=== PATIENT | male | born 1985 | race African-American/Black ===

== ENCOUNTER 2017-05-13 17:10 | Emergency (ER) | payer BC ==
[~2017-05-13] VITALS: Ht 167.6 cm; Wt 61.2 kg
[2017-05-13 17:24] VITALS: BP 155/78
[2017-05-13] MEDS ORDERED: METH-37 PO (18:25)
[2017-05-13] MEDS ORDERED: PROAIR RESPICL90 MCG IH (18:25)
[2017-05-13] MEDS ORDERED: TRAM-48 PO (18:25)
[2017-05-13] MEDS ORDERED: METH4TAB2 PO (18:25)
[2017-05-13] MEDS ORDERED: DICL100G18 TP (18:25)
[2017-05-13] MEDS ORDERED: BENZ100C PO (18:26)
--- NOTE | 2017-05-13 18:27 | PHYS DOC ---
Past Medical History Past Medical History: No Pertinent History Past Surgical History: Other Additional Past Surgical Histo: eye Alcohol Use: Occasionally Drug Use: None Adult General Chief Complaint Chief Complaint: GENERALIZED BODY ACHES [facility] HPI Patient is a 31 year old male with no significant medical history who presents today with multiple complaints. Patient is complaining a productive cough for 3 days. Patient is also complaining of mild intermittent left scapular pain left mid and upper back pain and left lateral neck pain intermittently for one week. Patient states this pain typically occurs before he goes to bed and when he wakes up. He states he can take Advil and the pain goes away but when he wakes up from his sleep he has pain in the morning. He works for [employer] and does considerable lifting by has not had an injury. Review of Systems Review of Systems Constitutional: Denies fever or chills [] Eyes: Denies change in visual acuity, redness, or eye pain [] HENT: Denies nasal congestion or sore throat [] Respiratory: cough denies shortness of breath [] Cardiovascular: No additional information not addressed in HPI [] GI: Denies abdominal pain, nausea, vomiting, bloody stools or diarrhea [] : Denies dysuria or hematuria [] Musculoskeletal:left scapular pain left mid and upper back pain and left lateral neck pain Integument: Denies rash or skin lesions [] Neurologic: Denies headache, focal weakness or sensory changes [] All other systems were reviewed and found to be within normal limits, except as documented in this note. Allergies Allergies Allergies Coded Allergies Type Severity Reaction Last Updated Verified No Known Drug Allergies 06/21/15 No Physical Exam Physical Exam Constitutional: Well developed, well nourished, no acute distress, non-toxic appearance. [] HENT: Normocephalic, atraumatic, bilateral external ears normal, oropharynx moist, no oral exudates, nose normal. [] Eyes: PERRLA, EOMI, conjunctiva normal, no discharge. [] Neck: Normal range of motion, no tenderness, supple, no stridor. [] Cardiovascular:Heart rate regular rhythm, no murmur [] Lungs & Thorax: Bilateral breath sounds clear to auscultation [] Abdomen: Bowel sounds normal, soft, no tenderness, no masses, no pulsatile masses. [] Skin: Warm, dry, no erythema, no rash. [] Back: No tenderness, no CVA tenderness. [] Extremities: No tenderness, no cyanosis, no clubbing, ROM intact, no edema. [] Neurologic: Alert and oriented X 3, normal motor function, normal sensory function, no focal deficits noted. [] Psychologic: Affect normal, judgement normal, mood normal. [] Current Patient Data Vital Signs Vital Signs Date Time Temp Pulse Resp B/P (MAP) Pulse Ox O2 Delivery O2 Flow Rate FiO2 05/13/17 17:24 98.3 93 18 99 Room Air 98.3 EKG EKG [] Radiology/Procedures Radiology/Procedures [] Course & Med Decision Making Course & Med Decision Making Pertinent Labs and Imaging studies reviewed. (See chart for details) Patient is in the ED with multiple complaints including neck pain, scapular pain , radiating to the shoulder, and a cough. Patient is in no distress. Pain is very musculoskeletal, he works for [employer] and does lifting, no injury. I talked to patient as well as mother on the phone. Patient will be discharged with albuterol inhaler for his cough, Medrol Dosepak, diclofenac cream,and Tessalon Perles. Dragon Disclaimer Dragon Disclaimer This electronic medical record was generated, in whole or in part, using a voice recognition dictation system. Departure Departure Impression: Primary Impression: Cough Additional Impression: Musculoskeletal pain Disposition: 01 HOME, SELF-CARE Condition: STABLE Referrals: NO PCP (PCP) follow up with your doctor in one week Patient Instructions: Cough, Adult, [id number], Musculoskeletal Pain Additional Instructions: You were seen with musculoskeletal and a cough Please take the medications provided as ordered Follow up with your doctor in one week Do not drive or operate machinery or Robaxin and or ultram Scripts Benzonatate (TESSALON PERLE) 100 Mg Capsule 1 CAP PO TID, #30 CAP Prov: MUTUNGA,TEA NEWS WRITER 05/13/17 Methocarbamol (ROBAXIN) 500 Mg Tablet 1 TAB PO TID, #30 TAB Prov: MUTUNGATEA NEWS WRITER 05/13/17 Methylprednisolone (MEDROL) 4 Mg Tab.ds.pk 1 PKG PO UD, #1 PKG Prov: MUTUNGA,TEA NEWS WRITER 05/13/17 Tramadol Hcl (ULTRAM) 50 Mg Tablet 1 TAB PO Q6HRS, #30 TAB Prov: MUTUNGA,TEA NEWS WRITER 05/13/17 Albuterol Sulfate (Proair Respiclick) 90 Mcg Aer.pow.ba 1 PUFF IH PRN Q6HRS Y for SHORTNESS OF BREATH, #1 INHALER Prov: TEA YA APRN 05/13/17 Diclofenac Sodium (VOLTAREN) 100 Gm Gel..gram. 1 GM TP QID, #100 GM 2 Refills Prov: TEA YA APRN 05/13/17 Problem Qualifiers TEA YA APRN May 13, 2017 18:27
== END 2017-05-13 18:33 | disposition home or self-care (01) ==
LOC: ER 17:10
DX: R05 Cough (principal); M54.2 Cervicalgia; R51 Headache; M54.6 Pain in thoracic spine
CPT/HCPCS: 99283

== ENCOUNTER 2021-08-09 14:31 | Emergency (ER) | payer BC, OTHER ==
[~2021-08-09] VITALS: Ht 167.6 cm; Wt 61.8 kg
[~2021-08-09 14:31] MED LIST: BENZ100C PO; DICL100G54 TP; METH-37 PO; METH4TAB2 PO; PROAIR RESPICL90 MCG IH; TRAM-48 PO
[2021-08-09] MEDS ORDERED: IV NORMAL SALINE 1000ML BAG 1,000 ML IV ONE (15:00)
[2021-08-09 15:17] LABS: BASO % 1 % (0-3); EOS % 1 % (0-3); HEMOGLOBIN 13.2 g/dL (13.0-17.5); LYMPH % 18 % (24-48); MEAN CORPUSCULAR HEMOGLOBIN 24 pg (25-35); MEAN CORPUSCULAR HGB CONC 32 g/dL (31-37); MEAN CORPUSCULAR VOLUME 76 fL (79-100); MONO # 0.7 x10^3/uL (0.0-1.1); MONO % 13 % (0-9); NEUT # 3.7 x10^3/uL (1.8-7.7); NEUT % 67 % (31-73); PLATELET COUNT 134 x10^3/uL (140-400); RED BLOOD COUNT 5.52 x10^6/uL (4.30-5.70); RED CELL DISTRIBUTION WIDTH 17.2 % (11.5-14.5); WHITE BLOOD COUNT 5.4 x10^3/uL (4.0-11.0)
--- NOTE | 2021-08-09 15:30 | RAD ---
EXAM: Chest, single view. HISTORY: Dizziness. Syncope. COMPARISON: None. FINDINGS: A frontal view of the chest obtained. There is no infiltrate, pleural effusion or pneumotho rax. The heart is normal in size. IMPRESSION: No acute pulmonary finding. Electronically signed by: Nancy Abreu MD (08/09/2021 3:27 PM) [id number]
--- NOTE | 2021-08-09 15:34 | RAD ---
INDICATION: Reason: Dizziness, syncopal episode / Spl. Instructions: / History: COMPARISON: March 29, 2018 TECHNIQUE: Axial CT images obtained through the head without intravenous contrast. One or more of the following individualized dose reduction techniques were utilized for this examinat ion: 1. Automated exposure control; 2. Adjustment of the mA and/or kV according to patient size; 3 . Use of iterative reconstruction technique. FINDINGS: No intracranial hemorrhage. No significant midline shift. Ventricles and sulci are unremarkable. No acute osseous abnormality. IMPRESSION: * No acute intracranial hemorrhage. Electronically signed by: Ken Quiles MD (08/09/2021 3:32 PM) [id number]
[2021-08-09 15:43] LABS: BILIRUBIN,URINE NEGATIVE (NEG); CLARITY,URINE CLEAR; COLOR,URINE YELLOW; NITRITE,URINE NEGATIVE (NEG); PROTEIN,URINE NEGATIVE (NEG-TRACE)
[2021-08-09 15:50] LABS: CALCIUM 8.2 mg/dL (8.5-10.1); CREATININE 0.9 mg/dL (0.7-1.3); GFR 115.5; POTASSIUM 4.6 mmol/L (3.5-5.1)
[2021-08-09 15:53] LABS: BACTERIA,URINE 0 /HPF (0-FEW); RBC,URINE 0 /HPF (0-2); WBC,URINE RARE /HPF (0-4)
[2021-08-09 15:56] LABS: ALBUMIN 3.4 g/dL (3.4-5.0); ALBUMIN/GLOBULIN RATIO 0.7 (1.0-1.7); TOTAL BILIRUBIN 1.3 mg/dL (0.2-1.0); TOTAL PROTEIN 8.2 g/dL (6.4-8.2)
[2021-08-09 16:23] LABS: BARBITURATES NEG (NEG); BENZODIAZEPINES NEG (NEG); CANNABINOIDS NEG (NEG); COCAINE NEG (NEG); METHADONE NEG (NEG); OPIATES NEG (NEG); PHENCYCLIDINE NEG (NEG)
[2021-08-09 16:42] LABS: AMPHETAMINE/METHAMPHETAMINE NEG (NEG)
--- NOTE | 2021-08-09 17:44 | PHYS DOC ---
Past Medical History Past Medical History: No Pertinent History Past Surgical History: Other Additional Past Surgical Histo: eye Smoking Status: Never Smoker Alcohol Use: Occasionally Drug Use: None General Adult EDM: Chief Complaint: DIZZY/LIGHT HEADED HPI: HPI: Patient is a 36-year-old male presents to the emergency department complaining of a dizzy spell with syncopal episode this past Monday while at work. 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 Patient denied hitting his head, denied injury to any part of his body, is unsure whether he fell or not, woke up in the seated position. Patient reports today at approximately 11 AM he had a return of his dizzy spell without syncopal episode. Patient reports the room started spinning while he was watching TV and lasted for approximately 1 minute then resolved. Patient reports as he was thinking about getting ready to go to work he started to get worried and wanted to come in for an examination. Patient is asking for work excuse for tonight. Patient denies history of cigarette smoking, reports he drinks on occasion, denies illicit drug use or history of IV drug use. Patient denies chest pains, chest palpitations, diaphoretic episodes, shortness of breath, chest or nasal congestion. Patient denies other physical complaints or physical concerns. Patient denies dizziness aches or pains or other symptoms at this current time. Review of Systems: Review of Systems: 14 body systems of review of systems have been reviewed. See HPI for pertinent positives and negative responses, otherwise all other systems are negative, nonpertinent or noncontributory. Constitutional: Negative except as outlined in HPI above. Skin: Negative except as outlined in HPI above. Eyes: Negative except as outlined in HPI above. HENT: Negative except as outlined in HPI above. Respiratory: Negative except as outlined in HPI above. Cardiovascular: Negative except as outlined in HPI above. GI: Negative except as outlined in HPI above. : Negative except as outlined in HPI above. Musculoskeletal: Negative except as outlined in HPI above. Integument: Negative except as outlined in HPI above. Neurologic: Negative except as outlined in HPI above. Endocrine: Negative except as outlined in HPI above. Lymphatic: Negative except as outlined in HPI above. Psychiatric: Negative except as outlined in HPI above. Heart Score: C/O Chest Pain: No Risk Factors: Risk Factors: DM, Current or recent (<one month) smoker, HTN, HLP, family history of CAD, obesity. Risk Scores: Score 0 - 3: 2.5% MACE over next 6 weeks - Discharge Home Score 4 - 6: 20.3% MACE over next 6 weeks - Admit for Clinical Observation Score 7 - 10: 72.7% MACE over next 6 weeks - Early Invasive Strategies Current Medications: Current Medications Medications (Trade) Dose Ordered Sig/Priyank Start Time Stop Time Status Last Admin Dose Admin Sodium Chloride 1,000 ml @ 1,000 mls/hr 1X ONCE 08/09/21 15:00 08/09/21 15:59 DC 08/09/21 15:00 1,000 MLS/HR Allergies: Allergies: Allergies Coded Allergies Type Severity Reaction Last Updated Verified No Known Drug Allergies 06/21/15 No Physical Exam: PE: Constitutional: Well developed, well nourished, no acute distress, non-toxic appearance. 36-year-old male in no apparent distress. HENT: Normocephalic, atraumatic. Oropharynx moist, pink, no deep tissue infectious process appreciated, no lymphadenopathy of the head or neck appreciated. Eyes: Conjunctiva normal, no discharge. Neck: Normal range of motion, no stridor. No C-spine tenderness, no nuchal rigidity. Cardiovascular: No cyanosis appreciated, distal cap refill less than 2 seconds. Lungs & Thorax: Patient is in no respiratory distress, no audible adventitious lung sounds appreciated. Abdomen: Nontender, no abnormalities noted. Abdomen flat, no masses or megaly appreciated, no skin discoloration appreciated, no surgical scars. Bowel sounds positive all four quadrants. Skin: Warm, dry, no erythema, no rash. Back: No tenderness, no deformities. Extremities: No tenderness, no cyanosis, no clubbing, ROM intact, no edema. Neurologic: Alert and oriented X 3, normal motor function, normal sensory function, no focal deficits noted. Psychologic: Affect normal, judgement normal, mood normal. Current Patient Data: Labs: Laboratory Tests Test 08/09/21 15:04 08/09/21 15:34 White Blood Count 5.4 x10^3/uL (4.0-11.0) Red Blood Count 5.52 x10^6/uL (4.30-5.70) Hemoglobin 13.2 g/dL (13.0-17.5) Hematocrit 42.0 % (39.0-53.0) Mean Corpuscular Volume 76 fL (79-100) L Mean Corpuscular Hemoglobin 24 pg (25-35) L Mean Corpuscular Hemoglobin Concent 32 g/dL (31-37) Red Cell Distribution Width 17.2 % (11.5-14.5) H Platelet Count 134 x10^3/uL (140-400) L Neutrophils (%) (Auto) 67 % (31-73) Lymphocytes (%) (Auto) 18 % (24-48) L Monocytes (%) (Auto) 13 % (0-9) H Eosinophils (%) (Auto) 1 % (0-3) Basophils (%) (Auto) 1 % (0-3) Neutrophils # (Auto) 3.7 x10^3/uL (1.8-7.7) Lymphocytes # (Auto) 1.0 x10^3/uL (1.0-4.8) Monocytes # (Auto) 0.7 x10^3/uL (0.0-1.1) Eosinophils # (Auto) 0.0 x10^3/uL (0.0-0.7) Basophils # (Auto) 0.0 x10^3/uL (0.0-0.2) Platelet Estimate Pending Sodium Level 136 mmol/L (136-145) Potassium Level 4.6 mmol/L (3.5-5.1) Chloride Level 102 mmol/L (98-107) Carbon Dioxide Level 25 mmol/L (21-32) Anion Gap 9 (6-14) Blood Urea Nitrogen 9 mg/dL (8-26) Creatinine 0.9 mg/dL (0.7-1.3) Estimated GFR (Cockcroft-Gault) 115.5 BUN/Creatinine Ratio 10 (6-20) Glucose Level 94 mg/dL (70-99) Calcium Level 8.2 mg/dL (8.5-10.1) L Total Bilirubin 1.3 mg/dL (0.2-1.0) H Aspartate Amino Transferase (AST) 251 U/L (15-37) H Alanine Aminotransferase (ALT) 211 U/L (16-63) H Alkaline Phosphatase 248 U/L (46-116) H Troponin I High Sensitivity 4 ng/L (4-75) BF-Jed-H-Type Natriuretic Peptide 51 pg/mL (0-124) Total Protein 8.2 g/dL (6.4-8.2) Albumin 3.4 g/dL (3.4-5.0) Albumin/Globulin Ratio 0.7 (1.0-1.7) L Urine Color Yellow Urine Clarity Clear Urine pH 8.0 (<5.0-8.0) Urine Specific [place] 1.010 (1.000-1.030) Urine Protein Negative mg/dL (NEG-TRACE) Urine Glucose (UA) Negative mg/dL (NEG) Urine Ketones (Stick) Negative mg/dL (NEG) Urine Blood Negative (NEG) Urine Nitrite Negative (NEG) Urine Bilirubin Negative (NEG) Urine Urobilinogen Dipstick 1.0 mg/dL (0.2 mg/dL) Urine Leukocyte Esterase Negative (NEG) Urine RBC 0 /HPF (0-2) Urine WBC Rare /HPF (0-4) Urine Bacteria 0 /HPF (0-FEW) Urine Opiates Screen Neg (NEG) Urine Methadone Screen Neg (NEG) Urine Barbiturates Neg (NEG) Urine Phencyclidine Screen Neg (NEG) Urine Amphetamine/Methamphetamine Neg (NEG) Urine Benzodiazepines Screen Neg (NEG) Urine Cocaine Screen Neg (NEG) Urine Cannabinoids Screen Neg (NEG) Urine Ethyl Alcohol Neg (NEG) Laboratory Tests 08/09/21 15:04 Laboratory Tests 08/09/21 15:04 Vital Signs: Vital Signs Date Time Temp Pulse Resp B/P (MAP) Pulse Ox O2 Delivery O2 Flow Rate FiO2 08/09/21 14:35 98.7 76 16 169/95 (119) 98 Room Air 98.7 EKG: EKG: EKG performed at 1503 by ED nursing staff shows a normal sinus rhythm without other ectopy heart rate 75 bpm, parable 0.160, QTc interval 0.420, no acute STEMI, no ACS, no acute ischemia appreciated, EKG interpreted by ED attending physician Dr. Patel. Radiology/Procedures: Radiology/Procedures: REASON: Dizziness, syncopal episode PROCEDURE: CT HEAD WO CONTRAST INDICATION: Reason: Dizziness, syncopal episode / Spl. Instructions: / History: COMPARISON: March 29, 2018 TECHNIQUE: Axial CT images obtained through the head without intravenous contrast. One or more of the following individualized dose reduction techniques were utilized for this examination: 1. Automated exposure control; 2. Adjustment of the mA and/or kV according to patient size; 3. Use of iterative reconstruction technique. FINDINGS: No intracranial hemorrhage. No significant midline shift. Ventricles and sulci are unremarkable. No acute osseous abnormality. IMPRESSION: * No acute intracranial hemorrhage. Electronically signed by: Ken Quiles MD (08/09/2021 3:32 PM) [id number] REASON: Dizziness, syncopal episode,ALSO CT PROCEDURE: CHEST AP ONLY EXAM: Chest, single view. HISTORY: Dizziness. Syncope. COMPARISON: None. FINDINGS: A frontal view of the chest obtained. There is no infiltrate, pleural effusion or pneumothorax. The heart is normal in size. IMPRESSION: No acute pulmonary finding. Electronically signed by: Nancy Abreu MD (08/09/2021 3:27 PM) [id number] Course & Med Decision Making: Course & Med Decision Making Pertinent Labs and Imaging studies reviewed. (See chart for details) 36-year-old male, vital signs reviewed, presents emergency department concerning dizziness, also had unwitnessed syncopal episode this past Monday. Physical examination is unremarkable, will order orthostatic vital signs, saline lock, 1 L normal saline, CBC, CMP, high-sensitivity troponin I, NT proBNP, CT head without contrast, chest x-ray, EKG, urinalysis assay, urine drug screen. Patient CT head unremarkable, chest x-ray unremarkable, EKG unremarkable, cardiac specific labs unremarkable, CBC unremarkable, patient's liver enzymes were notably elevated, will order hepatitis panel. Upon reexamination of the patient and review of emergency department work-up findings, patient does not reveal he is a daily drinker, denies abdominal pain, denies nausea, reports his last drink was this morning at approximately 8 AM when he got off work. Discussed with patient elevated liver enzymes, strict follow-up with primary care this week, patient reports he does not have a primary care physician, discussed with patient will provide information for area outpatient physicians to establish care with, reviewed return to ER precautions and concerns, patient gave verbal understanding of and is amenable to ED discharge planning. Discussed with the patient all findings and diagnostic testing as well as the need to follow-up with their primary care provider for further evaluation and treatment or return to the ED if any new or worsening symptoms. Strict return precautions were also discussed at length, the patient voiced understanding and agreement with the discharge planning. The patient was nontoxic in appearance, in no apparent distress, and hemodynamically stable at the time of disposition. Dragon Disclaimer: Dragon Disclaimer: This electronic medical record was generated, in whole or in part, using a voice recognition dictation system. Departure Departure Impression: Primary Impression: Spell of dizziness Additional Impression: Elevated liver enzymes Disposition: HOME / SELF CARE / HOMELESS Condition: GOOD Referrals: NO PCP (PCP) Patient Instructions: Dizziness Additional Instructions: You were seen today in the emergency department for dizzy spells and your passing out spell you had this past Monday. Your head CT and chest x-ray did not show any concerning findings. EKG and cardiac enzymes did not show any joselito rning findings. Your lab work was normal except for your liver enzymes. As we discussed they are elevated. I have sent a hepatitis panel to the lab to run, this should take a few days to process. During this time please establish care with a primary care provider. You had indicated you did not have a doctor to see, a pamphlet of area healthcare providers has been provided for you to review and choose a doctor to see this week. I have provided your work excuse you have asked for for today. Return to the emergency department for worsening symptoms or other concerns. Thank you for visiting our Emergency Department. It was a pleasure taking care of you today in the emergency department and we appreciate you trusting us with your care. If any additional problems come up don't hesitate to return to visit us. Please follow up with your primary care provider so they can plan additional care if needed and know about the problem that you had. If symptoms worsen come back to the Emergency Department. Any concerning symptoms that start such as chest pain, shortness of air, weakness or numbness on one side of the body, running high fevers or any other concerning symptoms return to the ER. EMERGENCY DEPARTMENT GENERAL DISCHARGE INSTRUCTIONS Thank you for coming to [facility] Emergency Department (ED) today and trusting us with you care. We trust that you had a positive experience in our Emergency Department. If you wish to speak to the department management, you may call the Director at [phone]. YOUR FOLLOW UP INSTRUCTIONS ARE FOLLOWS: 1. Do you have a private Doctor? If you do not have a private doctor, please ask for a resource list of physicians or clinics that may be able to assist you with follow up care. 2. The Emergency Physicain has interpreted your x-rays. The X-Ray specialist will also review them. If there is a change in the findings, you will be notified in 48 hours when at all possible. 3. A lab test or culture has been done, your results will be reviewed and you will be notified if you need a change in treatment. ADDITIONAL INSTRUCTIONS AND INFORMATION: 1. Your care today has been supervised by a physician who is specially trained in emergency care. Many problems require more than one evaluation for a complete diagnosis and treatment. We recommend that you schedule your follow up appointment as recommended to ensure complete treatment of you illness or injury. If you are unable to obtain follow up care and continue to have a problem, or if your condition worsens, we recommend that you return to the ED. 2. We are not able to safely determine your condition over the phone nor are we able to give sound medical advice over the phone. For these safety reasons, if you call for medical advice we will ask you to come to the ED for further evaluation. 3. If you have any questions regarding these discharge instructions please call the ED at [phone]. SAFETY INFORMATION: In the interest of safety, wellness, and injury prevention; we encourage you to wear your sealbelt, if you smoke; quite smoking, and we encourage family to use a protective helmet for bicycling and other sporting events that present an increased risk for head injury. IF YOUR SYMPTOMS WORSEN OR NEW SYMPTOMS DEVELOP, OR YOU HAVE CONCERNS ABOUT YOUR CONDITION; OR IF YOUR CONDITION WORSENS WHILE YOU ARE WAITING FOR YOUR FOLLOW UP APPOINTMENT; EITHER CONTACT YOUR PRIMARY CARE DOCTOR, THE PHYSICIAN WHOSE NAME AND NUMBER YOU WERE GIVEN, OR RETURN TO THE ED IMMEDIATELY. ISIDRO GOMEZ APRN Aug 09, 2021 17:44
[2021-08-09 17:49] VITALS: BP 145/98
[2021-08-09 17:54] LABS: PLT ESTIMATE ADEQUATE (ADEQUATE)
[2021-08-09 17:55] LABS: HYPOCHROMIA SLIGHT; TARGET CELLS FEW
[2021-08-09 17:56] LABS: ANISOCYTOSIS SLIGHT
--- NOTE | 2021-08-11 04:23 | EKG ---
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
== END 2021-08-09 18:00 | disposition home or self-care (01) ==
LOC: ER 14:31
DX: R42 Dizziness and giddiness (principal); R74.8 Abnormal levels of other serum enzymes
CPT/HCPCS: 36415; 70450; 71045; 80053; 80307; 81001; 83880; 84484; 85025; 86705; 86709; 86803; 87340; 93005; 96360; 99285; J7030

== ENCOUNTER 2021-09-17 11:42 | Emergency (ER) | payer OTHER ==
[~2021-09-17] VITALS: Ht 167.6 cm; Wt 62.1 kg
--- NOTE | 2021-09-17 12:44 | PHYS DOC ---
Past Medical History Past Medical History: No Pertinent History Past Surgical History: Other Additional Past Surgical Histo: eye Smoking Status: Never Smoker Alcohol Use: Heavy Additional Information: Reports drinking alcohol 3 times weekly, stating he drinks 2 beers and wine. Drug Use: None General Adult EDM: Chief Complaint: SYNCOPE HPI: HPI: Patient is a 36-year-old male presents to the emergency department reporting he thinks he passed out at work yesterday morning at approximately 6 AM. Patient states he woke up in his bosses office just prior to getting off work at 7 AM. Patient states he did drink all night the night before work in which she comes in between 11 PM and 7A. Patient states he had not eaten anything prior to this event. Patient states this is happened several times in the past. Patient reports he was seen here about a month ago and was told he had elevated liver enzymes and was given a doctor to follow-up with, patient states he needs to quit drinking however he is not currently requesting help. Patient denies headaches, dizziness, denies seizure history, denies recent fever or chills, denies injuring himself, states he is not sure if he hit his head however denies head or neck pain. Patient states he does not smoke cigarettes, he does drink hard liquor daily, denies illicit drug use. Patient denies other physical complaints or physical concerns. Review of Systems: Review of Systems: 14 body systems of review of systems have been reviewed. See HPI for pertinent positives and negative responses, otherwise all other systems are negative, nonpertinent or noncontributory. Constitutional: Negative except as outlined in HPI above. Skin: Negative except as outlined in HPI above. Eyes: Negative except as outlined in HPI above. HENT: Negative except as outlined in HPI above. Respiratory: Negative except as outlined in HPI above. Cardiovascular: Negative except as outlined in HPI above. GI: Negative except as outlined in HPI above. : Negative except as outlined in HPI above. Musculoskeletal: Negative except as outlined in HPI above. Integument: Negative except as outlined in HPI above. Neurologic: Negative except as outlined in HPI above. Endocrine: Negative except as outlined in HPI above. Lymphatic: Negative except as outlined in HPI above. Psychiatric: Negative except as outlined in HPI above. Heart Score: C/O Chest Pain: No Risk Factors: Risk Factors: DM, Current or recent (<one month) smoker, HTN, HLP, family history of CAD, obesity. Risk Scores: Score 0 - 3: 2.5% MACE over next 6 weeks - Discharge Home Score 4 - 6: 20.3% MACE over next 6 weeks - Admit for Clinical Observation Score 7 - 10: 72.7% MACE over next 6 weeks - Early Invasive Strategies Allergies: Allergies: Allergies Coded Allergies Type Severity Reaction Last Updated Verified No Known Drug Allergies 06/21/15 No Physical Exam: PE: Constitutional: Well developed, well nourished, no acute distress, non-toxic appearance. 36-year-old male in no apparent distress. HENT: Normocephalic, atraumatic. Eyes: Conjunctiva normal, no discharge. Neck: Normal range of motion, no stridor. Cardiovascular: No cyanosis appreciated, distal cap refill less than 2 seconds. Lungs & Thorax: Patient is in no respiratory distress, no audible adventitious lung sounds appreciated. Abdomen: Nontender, no abnormalities noted. Skin: Warm, dry, no erythema, no rash. Back: No tenderness, no deformities. Extremities: No tenderness, no cyanosis, no clubbing, ROM intact, no edema. Neurologic: Alert and oriented X 3, normal motor function, normal sensory function, no focal deficits noted. Psychologic: Affect normal, judgement normal, mood normal. Current Patient Data: Labs: Laboratory Tests Test 09/17/21 12:00 09/17/21 12:48 09/17/21 14:00 White Blood Count 5.1 x10^3/uL Red Blood Count 5.38 x10^6/uL Hemoglobin 12.9 g/dL Hematocrit 40.9 % Mean Corpuscular Volume 76 fL Mean Corpuscular Hemoglobin 24 pg Mean Corpuscular Hemoglobin Concent 32 g/dL Red Cell Distribution Width 17.1 % Platelet Count 108 x10^3/uL Neutrophils (%) (Auto) 63 % Lymphocytes (%) (Auto) 22 % Monocytes (%) (Auto) 13 % Eosinophils (%) (Auto) 1 % Basophils (%) (Auto) 1 % Neutrophils # (Auto) 3.2 x10^3/uL Lymphocytes # (Auto) 1.1 x10^3/uL Monocytes # (Auto) 0.7 x10^3/uL Eosinophils # (Auto) 0.1 x10^3/uL Basophils # (Auto) 0.0 x10^3/uL Platelet Estimate Decreased Large Platelets Occ Giant Platelets Occ Sodium Level 137 mmol/L Potassium Level 3.8 mmol/L Chloride Level 103 mmol/L Carbon Dioxide Level 26 mmol/L Anion Gap 8 Blood Urea Nitrogen 15 mg/dL Creatinine 0.9 mg/dL Estimated GFR (Cockcroft-Gault) 115.5 BUN/Creatinine Ratio 17 Glucose Level 97 mg/dL Calcium Level 8.4 mg/dL Total Bilirubin 1.7 mg/dL Aspartate Amino Transf (AST/SGOT) 286 U/L Alanine Aminotransferase (ALT/SGPT) 201 U/L Alkaline Phosphatase 252 U/L Troponin I High Sensitivity 8 ng/L Total Protein 8.0 g/dL Albumin 3.6 g/dL Albumin/Globulin Ratio 0.8 Ethyl Alcohol Level < 10 mg/dL Urine Collection Type Unknown Urine Color (Auto) Yellow Urine Turbidity Clear Urine pH (Auto) 6.0 Urine Specific Chama 1.020 Urine Protein (Auto) Negative mg/dL Urine Glucose (Auto)(UA) Negative mg/dL Urine Ketones (Auto) Negative mg/dL Urine Blood (Auto) Negative Urine Nitrite Negative Urine Bilirubin (Auto) Negative Urine Urobilinogen (Auto) 2 mg/dL Urine Leukocyte Esterase (Auto) Negative Urine RBC 0 /HPF Urine WBC 0 /HPF Urine Bacteria 0 /HPF Urine Opiates Screen Neg Urine Methadone Screen Neg Urine Barbiturates Neg Urine Phencyclidine Screen Neg Urine Amphetamine/Methamphetamine Neg Urine Benzodiazepines Screen Neg Urine Cocaine Screen Neg Urine Cannabinoids Screen Neg Urine Ethyl Alcohol Neg EKG: EKG: EKG performed at 1153 by ED nursing staff shows a normal sinus rhythm without other ectopy, heart rate 67 bpm, MO interval point 158, QTc interval 0.423, no acute STEMI, no ACS, no acute ischemia appreciated, EKG interpreted by ED attending physician Dr. Miller. Radiology/Procedures: Radiology/Procedures: REASON: Syncopal episode PROCEDURE: CHEST AP ONLY AP chest. HISTORY: Syncopal episode AP view was taken of the chest. Lungs are clear. Heart is normal in size. There is no effusion. IMPRESSION: 1. No acute chest disease. Electronically signed by: Roberto Regan MD (09/17/2021 1:40 PM) [facility] REASON: Syncopal episode PROCEDURE: CT HEAD WO CONTRAST PQRS Compliance Statement: One or more of the following individualized dose reduction techniques were utilized for this examination: 1. Automated exposure control 2. Adjustment of the mA and/or kV according to patient size 3. Use of iterative reconstruction technique CT head without contrast 09/17/2021 1:08 PM INDICATION: Syncopal episode COMPARISON: CT head 03/29/2018 TECHNIQUE: Multiple axial CT images of the head were obtained from skull base through the vertex without intravenous contrast. FINDINGS: Head: Ventricles, sulci and basal cisterns are within normal limits. There is no hydrocephalus. Eastman-white matter differentiation is normal. There is no acute intracranial hemorrhage. There is no mass, mass effect or midline shift. Posterior fossa is normal in appearance. Visualized portions of the orbits are normal. Paranasal sinuses are well aerated. Mastoid air cells are well aerated. Scalp and calvaria are normal. Cer umen identified within the bilateral external auditory canals. IMPRESSION: No acute intracranial hemorrhage. Course & Med Decision Making: Course & Med Decision Making Pertinent Labs and Imaging studies reviewed. (See chart for details) 36-year-old male, vital signs reviewed, presents emerged from starting a passing out spell at work. Patient's physical examination is unremarkable, orthostatic blood pressures are as follows lying 154/92 pulse rate 58, sitting 160/99 pulse rate 73, standing 164/100 pulse rate 78. Patient denied dizziness during orthostatic blood pressures, patient states he may have passed out because he was hung over. Discussed with patient drinking cessation, patient states he does know he needs to quit drinking however is not interested and seeking help at this time. Will order chest x-ray, CT head, CBC, CMP, alcohol level, EKG, troponin I, urinalysis assay, urine drug screen. Patient's labs are unremarkable except for elevated liver enzymes, these are at baseline from previous elevated liver enzymes from previous ER visit, CT head nonconcerning, chest x-ray nonconcerning, EKG is nonconcerning, high-sensitivity troponin I is within normal limits. The patient's urine is not infected. Discussed with patient ongoing concerns for elevated liver enzymes and drinking alcohol, patient states that he will quit drinking. Discussed with patient strict follow-up with primary care to manage elevated liver enzymes and other healthcare needs on an outpatient basis, will give a list of area clinics and physicians for patient to choose a primary care provider, return to ER precautions and concerns were reviewed, patient gave verbal understanding of and is amenable to ED discharge planning. Discussed with the patient all findings and diagnostic testing as well as the need to follow-up with their primary care provider for further evaluation and treatment or return to the ED if any new or worsening symptoms. Strict return precautions were also discussed at length, the patient voiced understanding and agreement with the discharge planning. The patient was nontoxic in appearance, in no apparent distress, and hemodynamically stable at the time of disposition. Krystleon Disclaimer: Dragx[employer] Disclaimer: This electronic medical record was generated, in whole or in part, using a voice recognition dictation system. Departure Departure Impression: Primary Impression: Passed out Additional Impressions: Elevated liver enzymes Alcohol abuse Disposition: HOME / SELF CARE / HOMELESS Condition: GOOD Referrals: NO PCP (PCP) Patient Instructions: Alcohol Problems Additional Instructions: You were seen today in the emergency department for passing out spell at work. A CT scan of your head did not show any concerning findings. Your lab work did show concerning findings of elevated liver enzymes. As we discussed, you had disclosed that you do drink alcohol often, I believe this is the source to your elevated liver enzymes. I fear that if you do not stop drinking that this may become worse and you may develop a liver failure. It is very important that you follow-up with your primary care provider to have your elevated liver enzymes evaluated closely. Please stop drinking alcohol. Please call today or Monday morning for the soonest appointment to see a primary care physician. I have attached to this document a list of area healthcare providers and healthcare clinics that can assist you in your ongoing healthcare needs. Thank you for visiting our Emergency Department. It was a pleasure taking care of you today in the emergency department and we appreciate you trusting us with your care. If any additional problems come up don't hesitate to return to visit us. Please follow up with your primary care provider so they can plan additional care if needed and know about the problem that you had. If symptoms worsen come back to the Emergency Department. Any concerning symptoms that start such as chest pain, shortness of air, weakness or numbness on one side of the body, running high fevers or any other concerning symptoms return to the ER. [facility] [address] [place] [address] [facility] [address] [place] [address] [facility] [address] [address] [facility] [address] [place] [address] Counts Include [address] [facility] [address] [place] [address] [facility] [address] [place] [address] [facility] [address] [place] [address] [facility] [address] [place] [address] [facility] [address] [place] [address] [facility] Department [address] [place] [address] ISIDRO GOMEZ APRN Sep 17, 2021 12:44
[2021-09-17 12:56] LABS: BASO % 1 % (0-3); EOS # 0.1 x10^3/uL (0.0-0.7); EOS % 1 % (0-3); HEMATOCRIT 40.9 % (39.0-53.0); HEMOGLOBIN 12.9 g/dL (13.0-17.5); LYMPH # 1.1 x10^3/uL (1.0-4.8); LYMPH % 22 % (24-48); MEAN CORPUSCULAR HEMOGLOBIN 24 pg (25-35); MEAN CORPUSCULAR HGB CONC 32 g/dL (31-37); MEAN CORPUSCULAR VOLUME 76 fL (79-100); MONO # 0.7 x10^3/uL (0.0-1.1); MONO % 13 % (0-9); NEUT # 3.2 x10^3/uL (1.8-7.7); NEUT % 63 % (31-73); PLATELET COUNT 108 x10^3/uL (140-400); RED BLOOD COUNT 5.38 x10^6/uL (4.30-5.70); RED CELL DISTRIBUTION WIDTH 17.1 % (11.5-14.5); WHITE BLOOD COUNT 5.1 x10^3/uL (4.0-11.0)
--- NOTE | 2021-09-17 13:04 | EKG ---
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
[2021-09-17 13:08] LABS: CALCIUM 8.4 mg/dL (8.5-10.1); CREATININE 0.9 mg/dL (0.7-1.3); GFR 115.5; POTASSIUM 3.8 mmol/L (3.5-5.1)
[2021-09-17 13:15] LABS: ALBUMIN 3.6 g/dL (3.4-5.0); ALBUMIN/GLOBULIN RATIO 0.8 (1.0-1.7); TOTAL BILIRUBIN 1.7 mg/dL (0.2-1.0)
[2021-09-17 13:25] LABS: PLT ESTIMATE DECREASED (ADEQUATE)
--- NOTE | 2021-09-17 13:30 | RAD ---
RS Compliance Statement: One or more of the following individualized dose reduction techniques were utilized for this examinat ion: 1. Automated exposure control 2. Adjustment of the mA and/or kV according to patient size 3. Use of iterative reconstruction technique CT head without contrast 09/17/2021 1:08 PM INDICATION: Syncopal episode COMPARISON: CT head 03/29/2018 TECHNIQUE: Multiple axial CT images of the head were obtained from skull base through the vertex with out intravenous contrast. FINDINGS: Head: Ventricles, sulci and basal cisterns are within normal limits. There is no hydrocephalus. Eastman-white matter differentiation is normal. There is no acute intracranial hemorrhage. There is no mass, mass e ffect or midline shift. Posterior fossa is normal in appearance. Visualized portions of the orbits are normal. Paranasal sinuses are well aerated. Mastoid air cells a re well aerated. Scalp and calvaria are normal. Cerumen identified within the bilateral external natalia tory canals. IMPRESSION: No acute intracranial hemorrhage. Electronically signed by: Carmel Easton MD (09/17/2021 1:27 PM) [id number]
--- NOTE | 2021-09-17 13:42 | RAD ---
AP chest. HISTORY: Syncopal episode AP view was taken of the chest. Lungs are clear. Heart is normal in size. There is no effusion. IMPRESSION: 1. No acute chest disease. Electronically signed by: Roberto Regan MD (09/17/2021 1:40 PM) [facility]
[2021-09-17 14:13] LABS: BARBITURATES NEG (NEG); BENZODIAZEPINES NEG (NEG); CANNABINOIDS NEG (NEG); COCAINE NEG (NEG); METHADONE NEG (NEG); OPIATES NEG (NEG); PHENCYCLIDINE NEG (NEG)
[2021-09-17 14:52] LABS: AMPHETAMINE/METHAMPHETAMINE NEG (NEG)
[2021-09-17 16:41] VITALS: BP 173/98
[2021-09-17 17:02] LABS: BACTERIA,URINE 0 /HPF (0-FEW); RBC,URINE 0 /HPF (0-2); WBC,URINE 0 /HPF (0-4)
== END 2021-09-17 16:41 | disposition home or self-care (01) ==
LOC: ER 11:42
DX: R55 Syncope and collapse (principal); R74.8 Abnormal levels of other serum enzymes; F10.20 Alcohol dependence, uncomplicated; Y90.0 Blood alcohol level of less than 20 mg/100 ml
CPT/HCPCS: 36415; 70450; 71045; 80053; 80307; 81001; 84484; 85025; 93005; 99285; G0480